=== PATIENT | male | born 1995 | race Caucasian/White ===

== ENCOUNTER 2018-09-27 18:46 | Emergency (ER) | payer SELFPAY ==
[2018-09-27] MEDS ORDERED: HYDROcod/ACETAM 5/325 MG TABLET PO STA (18:59)
--- NOTE | 2018-09-27 19:04 | ED Physician Documentation ---
History of Present Illness - Stated complaint Stated Complaint: R HAND INJ - Chief complaint Chief Complaint: Ext Problem - History obtained from History obtained from: Patient - History of Present Illness Timing: Last night Pain level max: 8 Pain level now: 6 - Additonal information Additional information: Patient is a 23-year-old right-handed male who punched a cabinet last night and has had increasing pain in the right hand since that time. Took Advil without relief. Placed in a homemade splint today. Has had a prior fracture in this hand. Better with splinting, worse with movement Review of Systems Neurologic: denies: Focal weakness, Numbness PD PAST MEDICAL HISTORY - Past Medical History Past Medical History: No - Past Surgical History Past Surgical History: Yes - Present Medications Home Medications: Ambulatory Orders Medication Instructions Recorded Confirmed Hydrocodone/Acetaminophen 1 - 2 each PO Q6H PRN #14 tablet 09/27/18 [Hydrocodon-Acetaminophen 5-325] - Allergies Allergies/Adverse Reactions: Allergies Allergy/AdvReac Type Severity Reaction Status Date / Time No Known Drug Allergies Allergy Verified 09/27/18 18:52 - Social History Does the pt smoke?: No Smoking Status: Never smoker Does the pt drink ETOH?: No Does the pt have substance abuse?: Yes Substance Use and Type: Marijuana - Immunizations Immunizations are current?: Yes PD ED PE NORMAL - Vitals Vital signs reviewed: Yes - General General: Alert and oriented X 3, No acute distress - Derm Derm: Warm and dry - Extremities Extremities: Other (R hand TTP over 4th and 5th MC, diffuse swelling and ecchymosis. NVI. ) - Neuro Neuro: Alert and oriented X 3 - Psych Psych: Normal mood, Normal affect Results - Vitals Vitals: Vital Signs - 24 hr 09/27/18 09/27/18 18:50 19:31 Temperature 36.7 C Heart Rate 81 80 Respiratory 16 16 Rate Blood Pressure 140/80 H 136/80 H O2 Saturation 100 100 Oxygen O2 Source Room air - Rads (name of study) R hand xray Radiology: Prelim report reviewed, EMP read contemporaneously, See rad report (Nondisplaced fourth and fifth metacarpal neck fractures. ) Procedures - Splint (location) r hand Splint applied by: Physician, Tech Type of splint: Fiberglass, Short arm, Ulnar gutter Other: Patient tolerated well, No complications, Neurovascular intact PD MEDICAL DECISION MAKING - ED course Complexity details: reviewed results, re-evaluated patient, considered differential, d/w patient ED course: Patient is a 23-year-old male with nondisplaced fourth and fifth metacarpal neck fractures. Placed in ulnar gutter splint. Neurovascularly intact. Will place on pain medication and follow-up with orthopedics. Patient counseled regarding signs and symptoms for which I believe and urgent re-evaluation would be necessary. Patient with good understanding of and agreement to plan and is comfortable going home at this time This document was made in part using voice recognition software. While efforts are made to proofread this document, sound alike and grammatical errors may occur. Departure - Departure Disposition: 01 Home, Self Care Clinical Impression: Fracture, metacarpal Qualifiers: Encounter type: initial encounter Metacarpal bone: unspecified metacarpal Fr acture type: closed Metacarpal location: shaft Fracture alignment: displaced Qualified Code(s): S62.329A - Displaced fracture of shaft of unspecified metacarpal bone, initial encounter for closed fracture Condition: Good Instructions: ED Fx Hand Closed Follow-Up: [facility] [Provider Group] - Within 1 week Prescriptions: Hydrocodone/Acetaminophen [Hydrocodon-Acetaminophen 5-325] 1 - 2 each PO Q6H PRN #14 tablet PRN Reason: pain Comments: Wear the splint until released by orthopedics. Follow-up with orthopedics for further evaluation and care. Do not drink alcohol or drive while on narcotic pain medicine. Note that many narcotic pain relievers also contain tylenol/acetaminophen. Please ensure that your total dose of acetaminophen from all sources does not exceed 3 grams (3000mg) per day. You may constipated on this medication, take a stool softener such as "Colace" twice a day while you are on it. Also recommend a [id number] laxative such as senna or MiraLAX any day that you do not have a bowel movement. If you received narcotic pain medication in the emergency department, do not drive or operate machinery for the next 24 hours. Discharge Date/Time: 09/27/18 19:31
--- NOTE | 2018-09-27 19:18 | XRAY Report ---
Reason: s/p punching a cabinet Procedure Date: 09/27/2018 Accession Number: [id number] / [id number] Procedure: XR - Hand 3 View RT CPT Code: FULL RESULT: EXAM: RIGHT HAND RADIOGRAPHY EXAM DATE: 09/27/2018 06:56 PM. CLINICAL HISTORY: Trauma, pain. COMPARISON: None. TECHNIQUE: 3 views. FINDINGS: Bones: Slightly oblique fracture of the fifth metacarpal neck with apex dorsal angulation, but complete apposition. Transverse fracture of fourth metacarpal neck with minimal comminution, slight apex dorsal angulation, but complete apposition of major fragments. Otherwise unremarkable. Joints: Normal. No subluxations. Soft Tissues: Soft tissue swelling. IMPRESSION: Nondisplaced fourth and fifth metacarpal neck fractures. [facility]
[2018-09-27 19:33] VITALS: BP 136/80
== END 2018-09-27 19:31 | disposition home or self-care (01) ==
LOC: ED 18:46
DX: S63.264A Dislocation of metacarpophalangeal joint of right ring finger, initial encounter (principal); S63.266A Dislocation of metacarpophalangeal joint of right little finger, initial encounter; W22.09XA Striking against other stationary object, initial encounter
CPT/HCPCS: 29125; 73130; 99283; A9270